=== PATIENT | female | born 1995 | race Caucasian/White ===

== ENCOUNTER 2018-11-04 15:31 | Outpatient (CLI) | payer MEDICAID ==
--- NOTE | 2018-11-04 20:19 | PN ---
Triage Information Date/Time Reason for visit: Uterine contractions Weeks of Gestation 37 weeks /Para Diabetes: none Hypertention: none Objective Heart Rate: 120's Heart Rate Comments Reactive Exam Cervix fingertip Disposition: Discharge Assessment/Plan No cervical change JANAE WALSH MD Nov 04, 2018 20:19
--- NOTE | 2018-11-04 21:28 | TRIAGE ---
OB Triage Datetime Report Generated by CPN: 11/04/2018 21:27 Datetime: 11/04/2018 19:37 Stage of : OB Triage Monitor Mode: External Quality: Mild Pattern: Normal: <= 5 Contractions in 10 Minutes Resting Tone [place]: Relaxed Heart Rate FHR Baseline Rate: 140 Monitor Mode: External US Variability: Moderate 6-25 bpm Accelerations: 15X15 Decelerations: None Category: Category I Vaginal Exam Dilatation (cms): 0.5 Effacement (%): 50 Station: -3 Exam By: Dr Campos Membrane Status: Intact Vaginal Bleeding: None Cervix, Consistency: Soft Cervix, Position: Posterior Datetime: 11/04/2018 19:22 Stage of : OB Triage Monitor Mode: External Quality: Mild Pattern: Normal: <= 5 Contractions in 10 Minutes Resting Tone [place]: Relaxed Heart Rate FHR Baseline Rate: 140 Monitor Mode: External US FHR Baseline Changes: No Baseline Change Variability: Moderate 6-25 bpm Accelerations: 15X15 Decelerations: None Category: Category I Pain Assessment Pain Scale: 2 Pain Presence: Constant Pain Type: Dull Pain Location: Back Datetime: 11/04/2018 18:57 Comments: us adjusted Datetime: 11/04/2018 18:24 Labor Evaluation Frequency: 0 Monitor Mode: External Pattern: Normal: <= 5 Contractions in 10 Minutes Resting Tone [place]: Relaxed Heart Rate FHR Baseline Rate: 145 Monitor Mode: External US Variability: Moderate 6-25 bpm Accelerations: 15X15 Decelerations: None Category: Category I Datetime: 11/04/2018 17:13 Stage of : OB Triage Labor Evaluation Frequency: 0 Pattern: Normal: <= 5 Contractions in 10 Minutes Heart Rate FHR Baseline Rate: 145 Monitor Mode: External US Variability: Moderate 6-25 bpm Accelerations: 15X15 Decelerations: None Category: Category I Datetime: 11/04/2018 16:27 Stage of : OB Triage Category: Category III Datetime: 11/04/2018 16:25 Stage of : OB Triage Labor Evaluation Frequency: 0 Monitor Mode: External Pattern: Normal: <= 5 Contractions in 10 Minutes Resting Tone [place]: Relaxed Heart Rate FHR Baseline Rate: 145 Monitor Mode: External US Variability: Moderate 6-25 bpm Accelerations: 15X15 Decelerations: None Category: Category I Datetime: 11/04/2018 16:22 Vaginal Exam Dilatation (cms): 0.5 Effacement (%): 50 Station: -3 Exam By: SZaid KELLIE Datetime: 11/04/2018 15:51 Assessment Type: Triage Maternal Assessment Level of Consciousness: Fully Conscious DTR's/Clonus: DTRs 2+; No Clonus Headache: Denies Blurred Vision: No Respiratory Effort: Unlabored; Regular Rhythm; Equal Expansion Breath Sounds, Left: Clear and Equal Breath Sounds, Right: Clear and Equal Nausea/Vomiting: Denies RUQ Epigastric Pain: Denies Lower Extremities Edema: None Degree: None Upper Extremities Edema: None Degree: None Facial Edema: None Fall Risk Assessment History of Falling: (0) No Secondary Diagnosis: (0) No Ambulatory Aid: (0) Bedrest/Nurse Assist IV Therapy: (0) No Gait: (0) Normal/Bedrest/Immobile Mental Status: (0) Oriented to Own Ability Fall Score: 0 Fall Risk Score Definition: No Risk: No action required Labor Evaluation Frequency: 0 Monitor Mode: External Pattern: Normal: <= 5 Contractions in 10 Minutes Heart Rate FHR Baseline Rate: 135 Variability: Moderate 6-25 bpm Accelerations: 15X15 Decelerations: None Category: Category I Datetime: 11/04/2018 15:50 Time of Arrival: 11/04/2018 15:25 EGA: 37.0 Arrived By: Ambulatory Arrived From: Office Chief Complaint: UC'S SENT FROM CLINIC Movement: Present Contractions: Irregular Time Contractions Began: 11/03/2018 08:00 Rupture of Membranes: Denies Vaginal Bleeding: None Vaginal Discharge: Denies Recent Sexual Intercouse: Denies Abdominal Trauma: Not Applicable Patient Complaints: Contractions Time Provider Notified: 11/04/2018 16:27 Provider Notified:
== END 2018-11-04 19:50 | disposition home or self-care (01) ==
LOC: OBT 15:31 → L-D 15:33 → OBT 19:50
PROVIDERS: ATTEND Obstetrics & Gynecology
DX: O62.9 Abnormality of forces of labor, unspecified (principal); Z3A.37 37 weeks gestation of pregnancy
CPT/HCPCS: G0463

== ENCOUNTER 2018-11-25 13:43 | Inpatient (IN) | payer MEDICAID ==
[~2018-11-25] VITALS: Ht 144.8 cm; Wt 63.1 kg
[2018-11-25] MEDS ORDERED: PNV11TAB PO (14:53)
[2018-11-25 14:54] VITALS: Ht 144.8 cm; Wt 63.1 kg
[2018-11-25 14:55] VITALS: BP 98/58; PULSE 86; RESP 18
[2018-11-25] MEDS ORDERED: IBUPROFEN 600 MG TAB PO PRN (16:30)
[2018-11-25] MEDS ORDERED: OXYTOCIN 30 UNITS/LR 500 ML IV SCH ×2 (16:30)
[2018-11-25] MEDS ORDERED: METHYLERGONOVINE 0.2 MG INJ IM PRN (16:30)
[2018-11-25] MEDS ORDERED: MISOPROSTOL 200 MCG TAB PR PRN (16:30)
[2018-11-25] MEDS ORDERED: OXYTOCIN 30 UNITS/LR 500 ML IV PRN (16:30)
[2018-11-25] MEDS ORDERED: LIDOCAINE 1% (MPF) 30 ML INJ INJ PRN (16:30)
[2018-11-25] MEDS ORDERED: CARBOPROST 250 MCG INJ IM PRN (16:30)
--- NOTE | 2018-11-25 16:37 | TRIAGE ---
OB Triage Datetime Report Generated by CPN: 11/25/2018 16:37 Datetime: 11/25/2018 14:57 Assessment Type: Triage Maternal Assessment Level of Consciousness: Fully Conscious DTR's/Clonus: DTRs 2+; No Clonus Headache: Denies Blurred Vision: No Respiratory Effort: Unlabored; Regular Rhythm; Equal Expansion Breath Sounds, Left: Clear and Equal Breath Sounds, Right: Clear and Equal Nausea/Vomiting: Denies RUQ Epigastric Pain: Denies Lower Extremities Edema: None Degree: None Upper Extremities Edema: None Degree: None Facial Edema: None Fall Risk Assessment History of Falling: (0) No Secondary Diagnosis: (0) No Ambulatory Aid: (0) Bedrest/Nurse Assist IV Therapy: (0) No Gait: (0) Normal/Bedrest/Immobile Mental Status: (0) Oriented to Own Ability Fall Score: 0 Fall Risk Score Definition: No Risk: No action required Datetime: 11/25/2018 14:56 Time of Arrival: 11/25/2018 13:35 EGA: 40.0 Arrived By: Ambulatory Arrived From: Office Chief Complaint: Leaking Movement: Present Contractions: Denies/Absent Rupture of Membranes: Denies Vaginal Bleeding: None Vaginal Discharge: Present Recent Sexual Intercouse: Denies Abdominal Trauma: Not Applicable Patient Complaints: Other Time Provider Notified: 11/25/2018 15:08 Provider Notified: DR WALSH Initial Plan: NST BPP AND EFW Datetime: 11/04/2018 15:51 Fall Score: 0 Fall Risk Score Definition: No Risk: No action required Datetime: 11/04/2018 15:50 EGA: 37.0
[2018-11-25] MEDS: LACTATED RINGER'S 1,000 ML IV SCH ×2 (17:19→19:57)
--- NOTE | 2018-11-25 19:35 | HP ---
Date/Time of Note Date/Time of Note DATE: 11/25/18 TIME: 19:32 OB - History Hx of Present Chief Complaint: leakage of fluid Estimated Due Date: Nov 25, 2018 : 3 Para: 2 Spontaneous : 0 Therapeutic : 0 Care: Good Care Ultrasounds: Normal mid trimester US Obstetrical Complications: None Medical Complications: None Past Family/Social History * Past Medical, Surgical, Family and Obstetric Histories reviewed from chart. GBS Status: Negative OB Admission Exam Vital Signs Vital Signs Vital Signs Date Temp Pulse Resp B/P (MAP) Pulse Ox O2 O2 Flow FiO2 Time Delivery Rate 11/25/18 98.5 86 18 98/58 (71) Room Air 14:55 Physical Exam HEENT: WNL Heart: Rhythm Normal Lungs: Clear, Equal Abdomen: WNL Extremities: Normal Reflexes: Normal Cervical Dilatation: 1cm Effacement: 50% Station: -1 Membranes: Intact Heart Rate: 120's Accelerations: Accelerations Present Decelerations: Variable Decelerations Varibility: Minimum Last 72 hours Lab Results CBC & BMP 11/25/18 17:00 OB Assessment/Plan Reason for admission: other Other Assessment: Term Plan: Other Other plan: Admit IV hydration Continuous monitoring Induction of labor if tracing reassuring JANAE WALSH MD Nov 25, 2018 19:35
[2018-11-26] VITALS (11 sets, daily range): BP systolic 85–114; BP diastolic 49–59; PULSE 59–72; RESP 16–18
[2018-11-26] MEDS: LACTATED RINGER'S 1,000 ML IV SCH ×2 (09:23→10:24)
[2018-11-26] MEDS ORDERED: OXYTOCIN 30 UNITS/LR 500 ML IV SCH ×2 (09:30→17:15)
[2018-11-26] MEDS ORDERED: CEFAZOLIN 2 GM/50 ML (PMX) 50 ML IVPB ONE (13:30)
[2018-11-26] MEDS ORDERED: CEFAZOLIN 2 GM in SOD CHLORIDE 0.9% 50 ML IVPB SCH (13:30)
--- NOTE | 2018-11-26 13:46 | PREAC ---
Date/Time of Note Date/Time of Note DATE: 11/26/18 TIME: 13:45 Anesthesia Eval and Record Evaluation Time Pre-Procedure Interview DATE: 11/26/18 TIME: 13:45 Age 23 Sex female NPO: 8 hrs Preoperative diagnosis NON REASSURING FHT Planned procedure URGENT C SECTION Past Medical History Past Medical History: Includes : : (1), Para: (0), Gestational age: (40 1/7) Surgery & Anesthesia Issues No known issue Meds Anticoagulation: No Beta Susan within 24 hr: No Reason Beta Susan not given: Pt. not on B-Susan Reported Medications [id number] ( 19) 1 Each Tablet, 1 TAB PO DAILY, TAB 11/25/18 Current Medications Lactated Ringer's 1,000 ml @ 125 mls/hr Q8H IV Last administered on 11/26/18at 10:24; Admin Dose 125 MLS/HR; Start 11/25/18 at 16:22 Lidocaine (Xylocaine 1% (Mpf)) 30 ml ONCE PRN INJ .EPISIOTOMY; Start 11/25/18 at 16:30 Oxytocin/Lactated Ringer's 500 ml @ 500 mls/hr ONCE POST IV ; Start 11/25/18 at 16:30 Oxytocin/Lactated Ringer's 500 ml @ 125 mls/hr POST IV ; Start 11/25/18 at 16:30 Ibuprofen (Motrin) 600 mg ONCE PRN PO .PAIN 1-5; Start 11/25/18 at 16:30 Oxytocin/Lactated Ringer's 500 ml @ 0 mls/hr ONCE PRN IV .VAGINAL BLEEDING; S tart 11/25/18 at 16:30 Methylergonovine Maleate (Methergine) 0.2 mg ONCE PRN IM .VAGINAL BLEEDING; S tart 11/25/18 at 16:30 Carboprost Tromethamine (Hemabate) 250 mcg ONCE PRN IM .VAGINAL BLEEDING; Start 11/25/18 at 16:30 Misoprostol (Cytotec) 1,000 mcg ONCE PRN IN .VAGINAL BLEEDING; Start 11/25/18 at 16:30 Oxytocin/Lactated Ringer's 500 ml @ 0 mls/hr FOR INDUCTION IV Last administered on 11/26/18at 11:33; Admin Dose 1 MLS/HR; Start 11/26/18 at 09:30 Cefazolin Sodium/ Dextrose 50 ml @ 100 mls/hr ONCE ONCE IVPB ; Start 11/26/18 at 13:30; Stop 11/26/18 at 13:59 Cefazolin Sodium 2 gm/Sodium Chloride 50 ml @ 100 mls/hr ONCE IVPB ; Start 11/26/18 at 13:30; Stop 11/26/18 at 20:00 Meds reviewed: Yes Allergies Coded Allergies: No Known Allergy (Unverified , 11/25/18) Allergies Reviewed: Yes Labs/Studies Labs Reviewed: Reviewed by anesthesiologist Result Diagram: 11/25/18 1700 Laboratory Tests 11/25/18 17:00 Blood Bank Test 11/25/18 17:00 Antibody Screen NEGATIVE Blood Type B POSITIVE Rh Immune Globulin Candidate NO test: N/A Pre-procedure Exam Last vitals Vital Signs Date Temp Pulse Resp B/P (MAP) Pulse Ox O2 O2 Flow FiO2 Time Delivery Rate 11/25/18 98.5 86 18 98/58 (71) Room Air 14:55 Airway: Adequate mouth opening, Adequate thyromental dist Mallampati: Mallampati II Teeth: Normal Lung: Normal Heart: Normal ASA Physical Status ASA physical status: 2 Emergency: E Planned Anesthetic Neuraxial: Spinal Planned Pain Management Sub-arachniod narcotics Pre-operative Attestations Prior to commencing anesthesia and surgery, the patient was re-evaluated, there was verification of: *The patient's identity *The results of appropriate recent lab work and preoperative vital signs *The above evaluation not changing prior to induction *Anesthetic plan, risk benefits, alternative and complications discussed with patient/family; questions answered; patient/family understands, accepts and wishes to proceed. Vignesh Krueger M.D. Nov 26, 2018 13:46
[2018-11-26] MEDS ORDERED: morphine SULFATE/PF (10 MG/10 ML) INJ ONE (13:49)
[2018-11-26] MEDS ORDERED: FENTAnyl 50 MCG/ML VIAL ONE (13:49)
[2018-11-26] MEDS ORDERED: OXYTOCIN 10 UNIT INJ ONE ×2 (13:49→13:50)
[2018-11-26] MEDS ORDERED: METOCLOPRAMIDE 10 MG INJ ONE (13:49)
[2018-11-26] MEDS ORDERED: PHENYLephrine (100 MCG/ML) 5ML SYG ONE (13:50)
--- NOTE | 2018-11-26 13:55 | QN ---
Documentation Comment Cervix is 1 cm dilated. Patient with Caregory II tracing remote from delivery. Tracing reviewed by Dr Harden ([facility]) who recommends to deliver the patient by primary . Risks, benefits and alternatives were explained to the patient who stated she understood and gave informed consent for the procedure. JANAE WALSH MD Nov 26, 2018 13:55
[2018-11-26] MEDS ORDERED: OXYCODONE/ACETAMINOPHEN (5/325) TAB PO PRN ×3 (15:00→17:30)
[2018-11-26] MEDS ORDERED: EPHEDrine SULFATE 50 MG/5 ML SYG IV PRN (15:00)
[2018-11-26] MEDS ORDERED: MEPERIDINE 25 MG INJ IV PRN (15:00)
[2018-11-26] MEDS ORDERED: LABETALOL HCL 20MG INJ IV PRN (15:00)
[2018-11-26] MEDS ORDERED: ONDANSETRON 4 MG INJ IV PRN ×2 (15:00)
[2018-11-26] MEDS ORDERED: morphine 2 MG INJ IV PRN ×2 (15:00)
[2018-11-26] MEDS ORDERED: FENTAnyl 50 MCG/ML VIAL IV PRN ×3 (15:00)
[2018-11-26] MEDS ORDERED: DIPHENHYDRAMINE 50 MG INJ IV PRN ×2 (15:00)
[2018-11-26] MEDS ORDERED: MIDAZOLAM 1 MG/ML 2 ML INJ IV PRN (15:00)
[2018-11-26] MEDS ORDERED: NALBUPHINE HCL (10 MG/1 ML) INJ IV PRN (15:00)
[2018-11-26] MEDS ORDERED: HYDROmorphONE 1 MG/5 ML IV SYRINGE IV PRN ×3 (15:00)
[2018-11-26] MEDS ORDERED: ALBUTEROL 0.083% (NEB) 2.5 MG/3 ML AMP HHN PRN (15:00)
[2018-11-26] MEDS ORDERED: TRIMETHOBENZAMIDE 100 MG/ML VIAL IM PRN ×2 (15:00)
[2018-11-26] MEDS ORDERED: IPRATROPIUM (NEB) 0.5 MG/2.5 ML AMP HHN PRN (15:00)
[2018-11-26] MEDS ORDERED: NALOXONE (0.4 MG/ML) INJ IV PRN (15:00)
[2018-11-26] MEDS ORDERED: hydrALAzine 20 MG INJ IV PRN (15:00)
--- NOTE | 2018-11-26 15:06 | PAC ---
Date/Time of Note Date/Time of Note DATE: 11/26/18 TIME: 15:06 Post-Anesthesia Notes Post-Anesthesia Note Last documented vital signs Vital Signs Date Temp Pulse Resp B/P (MAP) Pulse Ox O2 O2 Flow FiO2 Time Delivery Rate 11/25/18 98.5 86 18 98/58 (71) Room Air 14:55 Activity: WNL Respiratory function: WNL Cardiovascular function: WNL Mental status: Baseline Pain reasonably controlled: Yes Hydration appropriate: Yes Nausea/Vomiting absent: Yes Vignesh Krueger M.D. Nov 26, 2018 15:06
--- NOTE | 2018-11-26 16:26 | OPR ---
Operative Report Planned Procedure Procedure date Nov 26, 2018 Procedure(s) Primary low transverse Performed by Janae Walsh MD Jar Capper: SEBAS ROJAS MD Anesthesiologist: Vignesh Krueger M.D. Pre-procedure diagnosis Term with Category II tracing remote from delivery [id number] Anesthesia Type: [id number] spinal Post-Procedure Post-procedure diagnosis Same Findings Live Baby, Apgars 9 and 9 Estimated Blood Loss: other (500 ml) Specimen(s) Placenta Grafts/Implant(s) none Complication(s) none Pt Condition post procedure: stable Disposition: PACU Procedure Description After spinal anesthesia had been dosed and tested, the patient was placed supine on the Operating Room table and prepped and draped in the usual sterile fashion for a section. A Pfannenstiel incision was made through the abdomen and carried down to the level of the fascia. The fascia was incised transversely and then the rectus muscle was dissected off the fascia and split bluntly in the midline. The peritoneum was the entered bluntly. The bladder flap was created and then a low segment transverse incision was made with a knife on the uterus until the amniotic fluid was encountered. The incision was widened with bandage scissors. A hand was inserted elevating the vertex and then the head delivered with assistance of fundal pressure.. The nares and oropharynx were bulb suctioned, and the remainder of the infant was delivered out of the maternal abdomen. . The cord was doubly clamped and cut, and the handed off to the awaiting resuscitation team who was present for delivery. The placenta was then manually extracted and the interior uterus was cleaned with a dry lap sponge. The uterus was exteriorized, and the incision of the uterus closed with a running interlocking stitch of Monocryl suture. The uterus was replaced in the maternal abdomen. The abdomen was cleared of clots. The peritoneum was closed with 2-0 Vicryl. The fascia was closed with a running suture of #1 Vicryl suture meeting in the midline. The subcutaneous tissue was made hemostatic with Bovie cautery, and the skin approximated using chuckie. The patient tolerated the procedure well. All sponge and instrument counts were correct. She was taken to the recovery room in stable condition. JANAE WALSH MD Nov 26, 2018 16:26
[2018-11-26] MEDS ORDERED: LACTATED RINGER'S 1,000 ML IV SCH (17:15)
[2018-11-26] MEDS ORDERED: OXYTOCIN 30 UNITS/LR 500 ML IV PRN (17:30)
[2018-11-26] MEDS ORDERED: LANOLIN HPA 1 PKT TOP PRN (17:30)
[2018-11-26] MEDS ORDERED: METHYLERGONOVINE 0.2 MG INJ IM PRN (17:30)
[2018-11-26] MEDS ORDERED: MISOPROSTOL 200 MCG TAB PR PRN (17:30)
[2018-11-26] MEDS ORDERED: CARBOPROST 250 MCG INJ IM PRN (17:30)
[2018-11-26] MEDS: KETOROLAC 30 MG INJ IV PRN (17:48)
[2018-11-26] MEDS: SENNA/DOCUSATE NA (8.6MG/50MG) TAB PO SCH (21:00)
[2018-11-27] VITALS: BP 103/57; PULSE 69; RESP 18
[2018-11-27] MEDS: LACTATED RINGER'S 1,000 ML IV SCH ×2 (03:42→11:51)
[2018-11-27 04:00] VITALS: BP 88/50; PULSE 75; RESP 18
[2018-11-27] MEDS: SENNA/DOCUSATE NA (8.6MG/50MG) TAB PO SCH ×2 (08:11→21:24)
[2018-11-27] MEDS: KETOROLAC 30 MG INJ IV PRN ×2 (08:11→13:50)
[2018-11-27 08:15] VITALS: BP 92/50; PULSE 67; RESP 17
[2018-11-27 11:45] VITALS: BP 95/51; PULSE 76; RESP 17
[2018-11-27] MEDS: IBUPROFEN 800 MG TAB PO SCH ×2 (14:00→21:24)
[2018-11-27 15:45] VITALS: BP 99/59; PULSE 83; RESP 19
--- NOTE | 2018-11-27 20:00 | QN ---
Documentation Comment No complaint Afebrile VSS Abdomen soft ND POD #1 Stable Ambulate Advance diet Fe supplement JANAE WALSH MD Nov 27, 2018 20:00
[2018-11-27 20:15] VITALS: BP 90/46; PULSE 73; RESP 18
[2018-11-27] MEDS: FERROUS SULFATE (EC) 325 MG TAB PO SCH (21:24)
[2018-11-28 04:12] VITALS: BP 95/51; PULSE 81; RESP 18
[2018-11-28] MEDS: IBUPROFEN 800 MG TAB PO SCH ×3 (05:37→22:30)
[2018-11-28 08:30] VITALS: BP 102/54; PULSE 70; RESP 18
[2018-11-28] MEDS: SENNA/DOCUSATE NA (8.6MG/50MG) TAB PO SCH ×2 (09:51→20:59)
[2018-11-28] MEDS: FERROUS SULFATE (EC) 325 MG TAB PO SCH ×3 (09:51→20:59)
[2018-11-28] MEDS: OXYCODONE/ACETAMINOPHEN (5/325) TAB PO PRN ×2 (11:59→19:57)
[2018-11-28 15:55] VITALS: BP 99/50; PULSE 85; RESP 19
--- NOTE | 2018-11-28 17:36 | QN ---
Documentation Comment No complaint Afebrile VSS Abdomen soft ND Stable Continue Fe supplement. JANAE WALSH MD Nov 28, 2018 17:36
[2018-11-28] MEDS: FOLIC ACID 1 MG TAB PO SCH (18:15)
[2018-11-28 19:40] VITALS: BP 102/59; PULSE 60; RESP 19
[2018-11-29 04:00] VITALS: BP 98/58; PULSE 62; RESP 18
[2018-11-29] MEDS: IBUPROFEN 800 MG TAB PO SCH ×2 (05:47→14:19)
[2018-11-29 08:00] VITALS: BP 98/50; PULSE 65; RESP 20
[2018-11-29] MEDS ORDERED: DIPHTH/TET/ACEL PERTUSS (ADULT) 0.5 ML VIAL IM* ONE (09:00)
[2018-11-29] MEDS: FERROUS SULFATE (EC) 325 MG TAB PO SCH ×2 (09:59→12:59)
[2018-11-29] MEDS: SENNA/DOCUSATE NA (8.6MG/50MG) TAB PO SCH (09:59)
[2018-11-29] MEDS: FOLIC ACID 1 MG TAB PO SCH (10:00)
[2018-11-29 15:50] VITALS: BP 90/55; PULSE 84; RESP 19
[2018-11-29] MEDS: OXYCODONE/ACETAMINOPHEN (5/325) TAB PO PRN (15:50)
--- NOTE | 2018-11-29 19:54 | DS ---
Date/Time of Note Date/Time of Note DATE: 11/29/18 TIME: 19:53 Obstetrical Discharge Record Final Diagnosis Final Diagnosis: Term delivered Section Section: Primary Primary Indication Category II tracing Condition on Discharge Physical Assessment Voiding: Yes Bowel Movement: Yes Breast: Soft, non-tender, Filling Fundus: Firm Abdomen and Incision: Incision intact Calf Tenderness: No Patient Condition: Stable JANAE WALSH MD Nov 29, 2018 19:54
== END 2018-11-29 21:15 | disposition home or self-care (01) | DRG 788 ==
LOC: OBT 13:43 → L-D 13:44 → OBT 16:20 → L-D 11-26 02:38 → MS1 11-26 20:54 → PP1 11-29 17:40
PROVIDERS: ADMIT Obstetrics & Gynecology; ATTEND Obstetrics & Gynecology
PROC: 10D00Z1 Extraction of Products of Conception, Low, Open Approach (ICD-10-PCS; principal; 2018-11-26 13:30)
DX: O76 Abnormality in fetal heart rate and rhythm complicating labor and delivery (principal); Z37.0 Single live birth; Z3A.40 40 weeks gestation of pregnancy; Z23 Encounter for immunization
CPT/HCPCS: 76815; 76818; 85025; 85610; 85730; 86592; 86762; 86850; 86900; 86901; 87340; 88307; 90686; 90715; 99464; G0463; J0690; J1885; J2274; J2370; J2405; J2590; J2765; J3010; J3250; J7120

== ENCOUNTER 2019-06-11 09:21 | Emergency (ER) | payer MEDICAID ==
[~2019-06-11] VITALS: Ht 152.4 cm; Wt 74.0 kg
[~2019-06-11 09:21] MED LIST: IBUP800T48 PO; METH500T PO; PNV11TAB PO
[2019-06-11 09:27] VITALS: BP 107/66; PULSE 66; RESP 18; Ht 152.4 cm; Wt 74.0 kg
[2019-06-11] MEDS ORDERED: DIPHENHYDRAMINE 50 MG CAP PO ONE (10:00)
[2019-06-11] MEDS ORDERED: METHOCARBAMOL 500 MG TAB PO ONE (10:00)
[2019-06-11] MEDS ORDERED: IBUPROFEN 600 MG TAB PO ONE (10:00)
== END 2019-06-11 10:17 | disposition home or self-care (01) ==
LOC: FTE 09:21
DX: M54.5 Low back pain (principal)
CPT/HCPCS: 81003; 81025; Z7610; 99283